=== PATIENT | male | born 1990 | race African-American/Black ===

== ENCOUNTER → 2016-10-22 12:31 | Emergency (ER) | payer BC | END | disposition home or self-care (01) | LOC: D.ER 12:31 | DX: S00.83XA Contusion of other part of head, initial encounter (principal); X58.XXXA Exposure to other specified factors, initial encounter; Y93.72 Activity, wrestling; Y92.89 Other specified places as the place of occurrence of the external cause; S06.0X9A Concussion with loss of consciousness of unspecified duration, initial encounter; S16.1XXA Strain of muscle, fascia and tendon at neck level, initial encounter; F17.200 Nicotine dependence, unspecified, uncomplicated ==

== ENCOUNTER 2017-09-30 21:06 | Emergency (ER) | payer SELFPAY ==
[~2017-09-30] VITALS: Ht 182.9 cm; Wt 85.3 kg
[2017-09-30 21:22] VITALS: Ht 182.9 cm; Wt 85.3 kg
[2017-09-30 23:00] VITALS: BP 128/77
== END 2017-09-30 23:01 | disposition home or self-care (01) ==
LOC: D.ER 21:06
DX: S90.31XA Contusion of right foot, initial encounter (principal); W20.8XXA Other cause of strike by thrown, projected or falling object, initial encounter; Y93.89 Activity, other specified; Y92.019 Unspecified place in single-family (private) house as the place of occurrence of the external cause; F17.200 Nicotine dependence, unspecified, uncomplicated

== ENCOUNTER 2019-01-15 11:39 | Inpatient (IN) | payer SELFPAY ==
[~2019-01-15] VITALS: Ht 182.9 cm; Wt 73.6 kg
[2019-01-15] VITALS (8 sets, daily range): BP systolic 124–154; BP diastolic 76–108; Ht 182.9 cm; Wt 73.6 kg
[2019-01-15 12:14] LABS: BASOPHILS 0.2 % (0-2); EOSINOPHILS 0.6 % (0-7); HEMATOCRIT 48.2 % (42.0-54.0); HEMOGLOBIN 16.1 g/dL (13.5-17.5); IMMATURE GRANULOCYTES 0.1 % (0-5); LYMPHOCYTES 21.4 % (15-50); MCH 29.4 pg (26.0-34.0); MCHC 33.4 g/dL (31.0-37.0); MEAN PLATELET VOLUME 9.3 fL (7.4-10.4); NEUTROPHILS 69.7 % (40-80); PLATELET COUNT 264 10x3/uL (130-400); RBC 5.48 10x6/uL (4.20-6.10); RDW 14.6 % (11.5-14.5); WBC 8.2 10x3/uL (4.8-10.8)
--- NOTE | 2019-01-15 12:21 | NUR ---
POISON CONTROL CONTACTED FOR OVERDOSE OF DIPHENHYDRAMINE. WE SHOULD EXPECT MILD TO MODERATE SEDATION. POSSIBLY SOME ANTICHOLENERGIC EFFECTS, BUT SHOULD NOT BE TOO OVERLY DANGEROUS.
[2019-01-15 12:22] LABS: UDS - AMPHET NEGATIVE QUAL (NEGATIVE); UDS - BARB NEGATIVE QUAL (NEGATIVE); UDS - BENZO NEGATIVE QUAL (NEGATIVE); UDS - COCAINE NEGATIVE QUAL (NEGATIVE); UDS - OPIATE NEGATIVE QUAL (NEGATIVE); UDS - PCP NEGATIVE QUAL (NEGATIVE); UDS - THC NEGATIVE QUAL (NEGATIVE)
--- NOTE | 2019-01-15 12:27 | NUR ---
PT PLACED IN SECURE ROOM, BELONGINGS SECURED AT NURSING STATION, PT PLACED IN A PAPER GOWN, 1:1 SITTER AT BEDSIDE.
[2019-01-15 12:35] LABS: APPEARANCE CLEAR (CLEAR); BILIRUBIN NEGATIVE (NEGATIVE); COLOR STRAW (YELLOW); GLUCOSE NEGATIVE (NEGATIVE); KETONE NEGATIVE (NEGATIVE); NITRITE NEGATIVE (NEGATIVE); PROTEIN NEGATIVE (NEGATIVE); SPECIFIC GRAVITY 1.005 (1.005-1.020); UROBILINOGEN NORMAL (NORMAL)
[2019-01-15 12:36] LABS: ALBUMIN 4.3 g/dL (3.4-5.0); ANION GAP 13.5 mmol/L (8-16); BILIRUBIN - TOTAL 0.24 mg/dL (0.2-1.3); CALCIUM 9.6 mg/dL (8.5-10.1); CARBON DIOXIDE 26.8 mmol/L (21.0-32.0); CREATININE - SERUM 1.3 mg/dL (0.6-1.3); POTASSIUM - SERUM 4.3 mmol/L (3.5-5.1); PROTEIN - SERUM 7.4 g/dL (6.4-8.2)
--- NOTE | 2019-01-15 14:13 | NUR ---
DR. GUNTER NOTIFIED AND SITTER ORDERED. SITTER AT BEDSIDE. NOTIFIED CHARGE NURSE AND ATTENDING IN REGARDS TO ASSESSMENT FINDINGS. RESOURCES GIVEN TO PT AND SAFETY PLAN INTIAITED.
--- NOTE | 2019-01-15 15:30 | NUR ---
patient arrived to unit.
--- NOTE | 2019-01-15 17:30 | NUR ---
PATIENT IS ALERT AND ORIENTED. HE STATED HE REGRETS TAKING HIS MEDICATIONS. NO CHANGES. VSS. WILL CONTINUE TO MONITOR
--- NOTE | 2019-01-15 19:15 | NUR ---
PT A/OX4, ASSESSMENT COMPLETED, LEFT PIV INTACT AND SL, VITALS STABLE, NO C/O, SITTER PRESENT
--- NOTE | 2019-01-15 21:00 | NUR ---
PT ALERT, WATCHING TV, WILL CONT TO MONITOR
--- NOTE | 2019-01-15 23:00 | NUR ---
PT RESTING QUIETLY WITH NO C/O, SITTER PRESENT
[2019-01-16] VITALS (8 sets, daily range): BP systolic 115–146; BP diastolic 60–102
--- NOTE | 2019-01-16 01:00 | NUR ---
PT AROUSES EASILY, VITALS STABLE, SITTER PRESENT
--- NOTE | 2019-01-16 03:00 | NUR ---
PT REMAINS ASLEEP, VITALS STABLE, WILL CONT TO MONITOR, SITTER PRESENT
[2019-01-16 04:31] LABS: BASOPHILS 0.2 % (0-2); HEMATOCRIT 48.9 % (42.0-54.0); HEMOGLOBIN 16.1 g/dL (13.5-17.5); IMMATURE GRANULOCYTES 0.2 % (0-5); LYMPHOCYTES 40.2 % (15-50); MCH 28.9 pg (26.0-34.0); MCHC 32.9 g/dL (31.0-37.0); MCV 87.6 fL (80.0-100.0); MEAN PLATELET VOLUME 9.3 fL (7.4-10.4); MONOCYTES 9.2 % (2-11); NEUTROPHILS 48.2 % (40-80); PLATELET COUNT 282 10x3/uL (130-400); RBC 5.58 10x6/uL (4.20-6.10); RDW 14.6 % (11.5-14.5); WBC 9.4 10x3/uL (4.8-10.8)
[2019-01-16 04:46] LABS: ALBUMIN 3.8 g/dL (3.4-5.0); ANION GAP 13.1 mmol/L (8-16); BILIRUBIN - TOTAL 0.41 mg/dL (0.2-1.3); CALCIUM 9.1 mg/dL (8.5-10.1); CARBON DIOXIDE 27.1 mmol/L (21.0-32.0); CREATININE - SERUM 1.3 mg/dL (0.6-1.3); MAGNESIUM - SERUM 1.9 mg/dL (1.8-2.4); POTASSIUM - SERUM 4.2 mmol/L (3.5-5.1); PROTEIN - SERUM 7.2 g/dL (6.4-8.2)
--- NOTE | 2019-01-16 05:00 | NUR ---
PT AROUSES EASILY, KEEPS TAKING OFF B/P CUFF, NO DISTRESS NOTED
--- NOTE | 2019-01-16 07:10 | NUR ---
REPORT RECEIVED. ASSESSMENT COMPLETEPER FLOW SHEET. VSS. PT RESTING COMFORTALBY WILL CONTINUE TO MONITOR
--- NOTE | 2019-01-16 11:15 | NUR ---
REASSESSMENT COMPLETE PER FLOW SHEET. VSS. NO NEW CHANGES PT RESTING COMFORTABY WILL CONTINUE TO MONITOR
--- NOTE | 2019-01-16 16:10 | NUR ---
DR GUNTER AT BEDSIDE GIVEN UDPATE. STATED READY TO D.C. HOME AT THIS TIME. Y
--- NOTE | 2019-01-16 16:15 | NUR ---
DR NGUYEN PAGED GIVEN UDPATED STATED TO DISCHARGE AT THIS TIME.
--- NOTE | 2019-01-16 16:30 | NUR ---
PT DISCHARGED AT THIS TIME.
--- NOTE | 2019-01-17 12:17 | CN ---
PATIENT NAME:MARIBEL GARCIA MEDICAL RECORD: [id number] : 89 LOCATION:[id number] ADMIT DATE: 01/15/19 ACCOUNT: [id number] CONSULTING PHYSICIAN: JOSE CARLOS GUNTER MD REFERRING PHYSICIAN: DAVONTE NGUYEN DO DATE OF CONSULTATION: 01/16/2019 IDENTIFYING DATA: The patient is 29 years old and he was admitted to the hospital on a voluntary basis secondary to an overdose. CHIEF COMPLAINT: "I just did something stupid." HISTORY OF PRESENT ILLNESS: The patient reports that he took 5 Benadryl tablets and at that time, he was not sure if it would kill him. 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 He says he has thought about this carefully and no longer wants to hurt himself. 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 ASSESSMENT: Major depression, mild. PLAN: At this time, the patient can be released from the hospital and may return to his usual activities. He apparently is concerned about his blood pressure and would like a referral to a primary care physician and I would like to see him referred for mental health followup at [facility] He says he will go if he can afford it and he also promises that he would not do something like this again and would return to the Emergency Room if he had such thoughts, feelings or impulses. Given the overall picture and situation, I am comfortable in allowing him to go home, even though I recommended inpatient, I do not think he currently meets involuntary commitment criteria and I am not seriously uncomfortable with allowing him to go home assuming that he has not mislead me about his background or intentions and I think his long-term prognosis will be largely contingent upon him following up with outpatient treatment recommendations. TRANSINT:[id number] Voice Confirmation ID: [id number] DOCUMENT ID: [id number] JOSE CARLOS GUNTER MD at 1217 CC: [id number] DICTATION DATE: 01/16/19 1616 LEVEL VIAL SETTER: 01/16/199 DIS IN 01/16/19 [facility] [address] [place] [address]
== END 2019-01-16 16:38 | disposition home or self-care (01) | DRG 918 ==
LOC: D.ER 11:39 → D.ICU 14:26
PROVIDERS: Emergency Medicine; ADMIT Family Medicine; ATTEND Family Medicine
DX: T45.0X2A Poisoning by antiallergic and antiemetic drugs, intentional self-harm, initial encounter (principal); F17.213 Nicotine dependence, cigarettes, with withdrawal; R45.851 Suicidal ideations; F33.0 Major depressive disorder, recurrent, mild; F10.10 Alcohol abuse, uncomplicated